=== PATIENT | female | born 1990 | race Two or more races ===

== ENCOUNTER 2023-07-13 07:47 | Inpatient (IN) ==
--- NOTE | 2023-07-13 07:56 | History & Physical Report ---
Date of Service July 13, 2023 Assessment & Plan (1) Encounter for induction of labor: Plan 33 y/o here for induction Epidural when requested AROM when indicated Pitocin augmentation as needed for adequate contraction Monitor tracing, category 1 Admission and Anticipated Discharge Date Admission Date: July 13, 2023 History of Present Illness Primary Care Provider: NO PCP 33 y/o @ 40 weeks confirmed via. THIERRY: 07/11/23. Here for for Induction. No complications during . Has been attending OB appointments regularly. vitamins. GBS negative, Rubella immune, BTG: B+ Contractions: none. Fluid or Blood loss: none Movement: active FHR baseline 130, moderate variability, accelerations present, decelerations absent Lab Results OB Labs: Blood Type B Positive 12/01/22 Antibody Screen NEGATIVE 12/01/22 Hemoglobin 10.0 g/dl (12.0-16.0) L 04/14/23 Hematocrit 30.8 % (37.0-47.0) L 04/14/23 Mean Corpuscular Volume 86.3 fL (80.0-100.0) 12/01/22 Platelet Count 230 K/uL (130-400) 12/01/22 Rubella IgG Antibody Immune (Immune) 12/01/22 Rapid Plasma Reagin Nonreactive (Nonreactive) 12/01/22 Hepatitis B Surface Antigen. NON-REACTIVE (NON-REACTIVE) 12/01/22 Hepatitis C Antibody (EIA) NON-REACTIVE (NON-REACTIVE) 12/01/22 HIV (1&2) Ag and Ab Confirmation NON-REACTIVE (NON-REACTIVE) 12/01/22 Glucose 1 Hour 50 gm Load 109 mg/dl (70-130) 04/14/23 OB Optional Labs: Chlamydia trachomatis RNA Not Detected (NotDetected) 12/01/22 Neisseria gonorrhoeae RNA Not Detected (NotDetected) 12/01/22 Labs Reviewed: Declines genetics--mln Allergies Allergy/AdvReac Type Severity Reaction Status Date / Time No Known Allergies Allergy Verified 07/13/23 08:06 Home Medications Medication Instructions Recorded Confirmed Type no.167-folic acid-dha 1 tab PO DAILY 11/23/22 07/13/23 History [One-A-Day ] ferrous sulfate 325 mg (65 mg 325 mg PO DAILY 07/13/23 07/13/23 History iron) tablet (Iron (ferrous sulfate)) Patient History Medical History (Updated 07/13/23 @ 08:25 by Yemi Gill MD) No known health problems Surgical History (Updated 07/13/23 @ 08:05 by Sophei Fuentes, RN) No history of previous surgery Family History (Updated 11/23/22 @ 09:54 by Ange Roman) Brother Asthma Other Diabetes Dyslipidemia Hypertension Social History (Updated 07/13/23 @ 08:05 by Sophie Fuentes, RN) Smoking Status: Never smoker Do You Dip or Chew Tobacco: No; Hx Alcohol Use: No Hx Substance Use: No Preferred Language: [place] 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 Skin: warm, dry, intact Heart: +S1/S2, regular, no m/r/g Lungs: equal air entry bilaterally, no rales/rhonchi/wheezes Abd: +BS, soft, NT/ND, gravid uterus Cervical: uterus mod. anterior Ext: warm, no clubbing/cyanosis or edema Genitourinary: normal external appearance OB Exam Abdomen: + vertex Manual OB Exam: + cervical dilation (1.5), + cervical effacement 70% and + station high OB Exam Monitor Tracing: + external FHT monitor used, + external uterine monitor used and + category I Supervising Physician Co-Signing Physician Notes Patient seen and evaluated and agree of the above findings and plan. Resident Activity Tracking Resident Involvement: Resident Care Provided Care Provided: OB Delivery
[2023-07-13] MEDS ORDERED: LIDOCAINE 1% LOCAL 20 ML VIAL INFIL PRN (08:20)
[2023-07-13] MEDS ORDERED: OXYTOCIN 30 UNITS/NSS 30 UNITS/500 ML BAG IV PRN (08:20)
[2023-07-13 09:07] LABS: Hematocrit (blood only) 34.8 % (37.0-47.0); Hemoglobin 11.2 g/dl (12.0-16.0); Mean Corpuscular Hemoglobin 28.6 pg (25.0-34.0); Mean Corpuscular Hgb Conc 32.2 g/dL (32.0-36.0); Mean Platelet Volume 10.7 fL (9.4-12.4); Platelet Count 254 K/uL (130-400); RDW Coefficient of Variation 13.8 % (11.5-14.5); RDW Standard Deviation 44.6 fL (36.4-46.3); Red Blood Count 3.91 M/uL (4.20-5.40); White Blood Count 13.02 K/ul (4.8-10.8)
[2023-07-13] MEDS: LACTATED RINGER'S 1,000 ML IV PRN (09:33)
[2023-07-13] MEDS: OXYTOCIN 30 UNITS/NSS 30 UNITS/500 ML BAG IV PRN ×2 (09:33→23:40)
[2023-07-13] MEDS: fentANYL 2 MCG/ML BUPIVacaine 0.125%-NSS 100ML BAG ONE (16:37)
[2023-07-13] MEDS: BUPIVACAINE 0.25% PF 30 ML VIAL ONE (16:42)
[2023-07-13] MEDS: LIDOCAINE 2%/EPINEPHRINE 1:200,000 20 ML PF ONE (16:42)
[2023-07-13] MEDS: SODIUM CHLORIDE 0.9% PF INJ 10 ML VIAL ONE (16:42)
[2023-07-13] MEDS: fentaNYL citrate PF 100 MCG/2 ML VIAL ONE (16:42)
[2023-07-13] MEDS ORDERED: NALBUPHINE HCL 5 MG in SYRINGE 0 ML IV PRN (16:43)
[2023-07-13] MEDS ORDERED: PROMETHAZINE HCL 6.25 MG in SODIUM CHLORIDE 0.9% 50 ML IV PRN (16:43)
[2023-07-13] MEDS ORDERED: ePHEDrine sulfate 50 MG/ML AMP IV PRN (16:43)
[2023-07-13] MEDS ORDERED: BUPIVACAINE 0.25% PF 30 ML VIAL EPI PRN (16:43)
[2023-07-13] MEDS ORDERED: ONDANSETRON INJ 2 MG/ML 2 ML VIAL IV PRN (16:43)
[2023-07-13] MEDS ORDERED: NALOXONE HCL 1 MG in SODIUM CHLORIDE 0.9% 1,000 ML IV PRN (16:43)
[2023-07-13] MEDS ORDERED: LIDOCAINE 2% MPF LOCAL 5 ML VIAL EPI PRN (16:43)
[2023-07-13] MEDS ORDERED: ROPIVACAINE 0.5% PF 5 MG/ML 20 ML VIAL EPI PRN (16:43)
[2023-07-13] MEDS ORDERED: SODIUM CHLORIDE 0.9% PF INJ 10 ML VIAL EPI PRN (16:43)
[2023-07-13] MEDS ORDERED: fentaNYL citrate PF 100 MCG/2 ML VIAL EPI PRN (16:43)
[2023-07-13] MEDS ORDERED: fentANYL 2 MCG/ML BUPIVacaine 0.125%-NSS 100ML BAG EPI PRN (16:43)
[2023-07-13] MEDS ORDERED: NALOXONE HCL 0.4 MG/1 ML VIAL/CARP IV PRN (16:43)
[2023-07-13] MEDS ORDERED: diphenhydrAMINE 50 MG/ML VIAL IV PRN (16:43)
--- NOTE | 2023-07-13 16:43 | Anesthesiology Consultation ---
Date of Service July 13, 2023 Assessment & Plan Chart Review Chart Review: Patient NOT seen in Pre Admission Testing and Acceptable Risk for Labor Epidural Consults Requested none ASA ASA2 Proposed Anesthesia Anesthesia Type: Labor Epidural Risk / Benefits Reviewed With: PT / POA / Parent / Guardian, Accepts Plan and Informed Consent Obtained History Height/Weight Height: 5 ft 10 in Weight: 87.09 kg Allergies Allergy/AdvReac Type Severity Reaction Status Date / Time No Known Allergies Allergy Verified 07/13/23 08:06 Medications Home Medications Medication Instructions Recorded Confirmed Last Taken no.167-folic acid-dha 1 tab PO DAILY 11/23/22 07/13/23 07/12/23 [One-A-Day ] ferrous sulfate 325 mg (65 mg 325 mg PO DAILY 07/13/23 07/13/23 07/12/23 iron) tablet (Iron (ferrous sulfate)) Active Medications Generic Name Dose Route Start Last Admin Trade Name Freq PRN Reason Stop Dose Admin Lactated Ringer's 1,000 mls @ 125 mls/hr 07/13/23 08:20 07/13/23 16:01 Lr IV 07/15/23 08:19 999 mls/hr .Q8H PRN Administration L&D Protocol Protocol Oxytocin 30 units in 500 mls @ 10 mls/hr 07/13/23 08:41 07/13/23 15:29 Pitocin 30 Units/Nss IV 07/15/23 08:40 0.6 units/hr .Q24H PRN 10 mls/hr Labor Induction/Augmentation Titration Protocol 0.6 UNITS/HR Past Medical History Medical History (Updated 07/13/23 @ 08:25 by Yemi Gill MD) No known health problems Exercise / Class Metabolic Activity II 4-5 Yardwork/Stairs/Walk up hill Past Family History Family History (Updated 11/23/22 @ 09:54 by Ange Roman) Brother Asthma Other Diabetes Dyslipidemia Hypertension Past Surgical History Surgical History (Updated 07/13/23 @ 08:05 by Sophie Fuentes RN) No history of previous surgery Past Anesthesia History No Hx of Anesthesia Complications and No Family Hx of Anesthesia Complications History of PONV No Hx of PONV and No Hx of Motion Sickness Social History Smoking Status: Never smoker Do You Dip or Chew Tobacco: No Hx Alcohol Use: No Hx Substance Use: No substance use type: does not use Physical Exam Vital Signs Last Vital Signs Temp 36.6 C 07/13/23 15:00 Pulse 85 07/13/23 16:41 Resp 18 07/13/23 15:00 BP 125/79 07/13/23 16:41 Pulse Ox 86 L 07/13/23 16:41 ENMT Mouth: no dentition abnormality Thyromental Distance: > or= 3.5 Finger Breadths Mallampati Class: II Neck normal visual inspection Respiratory normal respiratory effort Auscultation: lungs clear to auscultation bilaterally Cardiovascular Rate/Rhythm: regular rate and regular rhythm Psychiatric Orientation: alert Testing Laboratory Results 07/13/23 08:52
[2023-07-13] MEDS: BUPIVACAINE 0.25% PF 30 ML VIAL EPI STA (16:58)
[2023-07-13] MEDS: LIDOCAINE 2%/EPINEPHRINE 1:200,000 20 ML PF EPI STA (16:58)
[2023-07-13] MEDS: SODIUM CHLORIDE 0.9% PF INJ 10 ML VIAL EPI STA (16:58)
[2023-07-13] MEDS: fentaNYL citrate PF 100 MCG/2 ML VIAL EPI STA (16:58)
[2023-07-13] MEDS: ePHEDrine sulfate 50 MG/ML AMP ONE (18:59)
[2023-07-13] MEDS: miSOPROStoL 200 MCG TAB ONE (23:51)
[2023-07-14] MEDS ORDERED: HYDROCORTISONE ACETATE 25 MG SUPP PR PRN (00:07)
[2023-07-14] MEDS ORDERED: ACETAMINOPHEN 325 MG TAB PO PRN (00:07)
[2023-07-14] MEDS ORDERED: bisacodyL 10 MG SUPP PR PRN (00:07)
[2023-07-14] MEDS ORDERED: OXYTOCIN 30 UNITS/NSS 30 UNITS/500 ML BAG IV PRN (00:07)
[2023-07-14] MEDS: miSOPROStoL 200 MCG TAB PR ONE (01:19)
[2023-07-14] MEDS: DIPHTHER/TETAN/PERTUS Vaccine (Tdap, Adol/Adult) 0.5mL IM ONE (01:19)
[2023-07-14] MEDS: IBUPROFEN 600 MG TAB PO PRN (01:20)
[2023-07-14] MEDS: BENZOCAINE 20% SPRY 85 APPLN/85 GM CAN EXT PRN (01:20)
--- NOTE | 2023-07-14 06:48 | Obstetrical Progress Note ---
Date of Service July 14, 2023 Assessment & Plan (1) Encounter for care and examination after delivery: Plan 33 y/o s/p vaginal delivery day 1 continue encouraging ambulation continue pain management as needed Hgb reviewed V/S reviewed Encourage breast feeding Admission and Anticipated Discharge Date Admission Date: July 13, 2023 Supervising Physician Co-Signing Physician Notes Patient seen with resident and agree with the above findings and plan. Day 1 status post . Doing well we will continue with routine care Subjective 33 yo post- day 1 s/p Ambulation: ambulating normally Voiding: no voiding problems Passing Gas:: Yes Diet Tolerance:: regular diet Lochia:: Small Feeding Type:: breast feeding and bottle feeding Current Pain Level: Resting comfortably this AM in NAD. Denies PARDO, CP, SOB, N/V/D, LE pain/swelling. Review of Systems Review of Systems: All systems reviewed & are unremarkable except as noted in HPI & below Physical Exam Physical Exam: General: patient resting comfortably, NAD, non-toxic in appearance, AA&O x 4, answers questions appropriately. Skin: warm, dry, intact Heart: +S1/S2, regular, no m/r/g Lungs: equal air entry bilaterally, no rales/rhonchi/wheezes Abd: +BS, soft, NT/ND, uterine fundus firm at umbilicus Ext: warm, no clubbing/cyanosis or edema, Joshua's neg. Results & Data Vital Signs (Past 12 Hours) Vital Signs Temp Pulse Pulse Resp BP BP Pulse Ox 07/14/23 01:55 36.8 C 82 16 120/69 100 07/14/23 01:51 36.8 C 16 07/14/23 01:51 82 120/69 07/14/23 01:36 103 H 126/69 07/14/23 01:22 36.8 C 18 07/14/23 01:22 120 H 123/74 07/14/23 01:07 94 H 122/57 L 07/14/23 00:52 18 07/14/23 00:52 104 H 137/69 07/14/23 00:36 16 07/14/23 00:36 86 125/70 07/14/23 00:21 16 07/14/23 00:21 94 H 126/71 07/14/23 00:06 18 07/14/23 00:06 116 H 134/85 07/13/23 23:51 37.0 C 16 07/13/23 23:51 76 113/74 07/13/23 23:48 78 100 07/13/23 23:43 81 99 07/13/23 23:38 85 100 07/13/23 23:35 85 113/69 07/13/23 23:33 86 100 07/13/23 23:28 90 100 07/13/23 23:23 97 H 99 07/13/23 23:18 91 H 99 07/13/23 23:13 102 H 99 07/13/23 23:08 101 H 99 07/13/23 23:03 100 07/13/23 23:03 107 H 07/13/23 23:03 112 H 82 L 07/13/23 22:58 82 98 07/13/23 22:53 81 98 07/13/23 22:52 101 H 84 L 07/13/23 22:48 81 129/60 89 L 07/13/23 22:47 93 H 80 L 07/13/23 22:43 82 100 07/13/23 22:39 93 H 85 L 07/13/23 22:38 93 H 100 07/13/23 22:33 73 100 07/13/23 22:32 75 123/59 L 07/13/23 22:31 91 H 74 L 07/13/23 22:28 83 100 07/13/23 22:25 85 86 L 07/13/23 22:23 85 100 07/13/23 22:18 85 99 07/13/23 22:17 83 122/68 86 L 07/13/23 22:13 81 96 07/13/23 22:08 106 H 100 07/13/23 22:03 119 H 88 L 07/13/23 22:01 86 82 L 07/13/23 21:58 87 98 07/13/23 21:55 97 H 86 L 07/13/23 21:53 83 99 07/13/23 21:48 82 137/61 100 07/13/23 21:47 87 86 L 07/13/23 21:43 95 H 98 07/13/23 21:41 98 H 87 L 07/13/23 21:38 91 H 100 07/13/23 21:34 100 H 87 L 07/13/23 21:33 100 07/13/23 21:33 92 H 07/13/23 21:33 96 H 129/58 L 07/13/23 21:28 103 H 76 L 07/13/23 21:23 122 H 95 07/13/23 21:21 93 H 87 L 07/13/23 21:18 91 H 100 07/13/23 21:17 90 133/59 L 07/13/23 21:14 100 H 84 L 07/13/23 21:13 84 100 07/13/23 21:08 105 H 100 07/13/23 21:07 90 85 L 07/13/23 21:03 100 07/13/23 21:03 92 H 07/13/23 21:03 88 132/63 07/13/23 21:02 18 07/13/23 21:02 37.4 C 18 07/13/23 20:58 91 H 100 07/13/23 20:53 87 100 07/13/23 20:48 100 07/13/23 20:48 86 07/13/23 20:48 89 123/78 07/13/23 20:43 81 100 07/13/23 20:38 81 100 07/13/23 20:34 92 H 89 L 07/13/23 20:33 89 L 07/13/23 20:33 96 H 07/13/23 20:33 94 H 119/71 07/13/23 20:28 87 100 07/13/23 20:23 91 H 100 07/13/23 20:18 93 H 100 07/13/23 20:17 97 H 134/60 07/13/23 20:13 87 100 07/13/23 20:08 87 100 07/13/23 20:03 80 100 07/13/23 20:02 80 122/63 07/13/23 20:00 16 07/13/23 20:00 16 07/13/23 19:59 85 86 L 07/13/23 19:58 97 H 96 07/13/23 19:53 72 100 07/13/23 19:48 100 07/13/23 19:48 85 07/13/23 19:48 80 122/60 07/13/23 19:43 77 100 07/13/23 19:38 84 100 07/13/23 19:34 68 110/59 L 07/13/23 19:33 69 100 07/13/23 19:32 80 86 L 07/13/23 19:28 72 100 07/13/23 19:23 74 100 07/13/23 19:18 90 93 07/13/23 19:17 76 107/55 L 07/13/23 19:13 72 100 07/13/23 19:08 75 100 07/13/23 19:03 78 99 07/13/23 19:02 90 116/68 07/13/23 19:00 18 07/13/23 19:00 36.8 C 18 07/13/23 18:58 76 100 07/13/23 18:53 83 100 07/13/23 18:48 100 07/13/23 18:48 74 07/13/23 18:48 74 117/65 O2 Del Method 07/14/23 01:55 Room Air 07/14/23 01:51 07/14/23 01:51 07/14/23 01:36 07/14/23 01:22 07/14/23 01:22 07/14/23 01:07 07/14/23 00:52 07/14/23 00:52 07/14/23 00:36 07/14/23 00:36 07/14/23 00:21 07/14/23 00:21 07/14/23 00:06 07/14/23 00:06 07/13/23 23:51 07/13/23 23:51 07/13/23 23:48 07/13/23 23:43 07/13/23 23:38 07/13/23 23:35 07/13/23 23:33 07/13/23 23:28 07/13/23 23:23 07/13/23 23:18 07/13/23 23:13 07/13/23 23:08 07/13/23 23:03 07/13/23 23:03 07/13/23 23:03 07/13/23 22:58 07/13/23 22:53 07/13/23 22:52 07/13/23 22:48 07/13/23 22:47 07/13/23 22:43 07/13/23 22:39 07/13/23 22:38 07/13/23 22:33 07/13/23 22:32 07/13/23 22:31 07/13/23 22:28 07/13/23 22:25 07/13/23 22:23 07/13/23 22:18 07/13/23 22:17 07/13/23 22:13 07/13/23 22:08 07/13/23 22:03 07/13/23 22:01 07/13/23 21:58 07/13/23 21:55 07/13/23 21:53 07/13/23 21:48 07/13/23 21:47 07/13/23 21:43 07/13/23 21:41 07/13/23 21:38 07/13/23 21:34 07/13/23 21:33 07/13/23 21:33 07/13/23 21:33 07/13/23 21:28 07/13/23 21:23 07/13/23 21:21 07/13/23 21:18 07/13/23 21:17 07/13/23 21:14 07/13/23 21:13 07/13/23 21:08 07/13/23 21:07 07/13/23 21:03 07/13/23 21:03 07/13/23 21:03 07/13/23 21:02 07/13/23 21:02 07/13/23 20:58 07/13/23 20:53 07/13/23 20:48 07/13/23 20:48 07/13/23 20:48 07/13/23 20:43 07/13/23 20:38 07/13/23 20:34 07/13/23 20:33 07/13/23 20:33 07/13/23 20:33 07/13/23 20:28 07/13/23 20:23 07/13/23 20:18 07/13/23 20:17 07/13/23 20:13 07/13/23 20:08 07/13/23 20:03 07/13/23 20:02 07/13/23 20:00 07/13/23 20:00 07/13/23 19:59 07/13/23 19:58 07/13/23 19:53 07/13/23 19:48 07/13/23 19:48 07/13/23 19:48 07/13/23 19:43 07/13/23 19:38 07/13/23 19:34 07/13/23 19:33 07/13/23 19:32 07/13/23 19:28 07/13/23 19:23 07/13/23 19:18 07/13/23 19:17 07/13/23 19:13 07/13/23 19:08 07/13/23 19:03 07/13/23 19:02 07/13/23 19:00 07/13/23 19:00 07/13/23 18:58 07/13/23 18:53 07/13/23 18:48 07/13/23 18:48 07/13/23 18:48 Resident Activity Tracking Resident Involvement: Resident Care Provided Care Provided: OB Delivery
--- NOTE | 2023-07-14 07:35 | Delivery Summary ---
Vaginal Delivery Summary Date of Service July 14, 2023 Vaginal Delivery Summary and 2nd Degree LAC Patient progressed to 10 cm dilated 100% effaced pressure intact perineum for approximately 2 hours to achieve delivery. Head of the delivered in direct OA and repositioned to left transverse. Body and shoulders quickly followed. was noted be vigorous soon after delivery and a 1 minute delayed cord clamping was initiated. Cord was then double clamped and cut and remained on maternal abdomen. Cord blood obtained. Attention was turned to delivery of the placenta which delivered intact three-vessel cord with gentle cord traction. On inspection of perineum, vagina and cervix there is noted to be bilateral second-degree sulcal lacerations and bilateral labial lacerations. All lacerations were repaired with 3-0 Vicryl continuous running stitch. Needle sponge and instrument counts are correct at the completion of the case. Estimated blood loss of 400 mL noted. No complications noted. Patient and doing well in the immediate period. [facility] Vaginal Delivery Charge Delivery Type Details: and 2nd Degree LAC
[2023-07-14] MEDS: DOCUSATE SODIUM 100 MG CAP PO SCH (08:20)
[2023-07-14] MEDS: PRENATAL VITAMIN 1 TAB PO SCH (08:20)
[2023-07-14] MEDS: FERROUS SULFATE 325 MG TAB PO SCH (08:20)
[2023-07-14 09:44] LABS: Hemoglobin 8.5 g/dl (12.0-16.0)
--- NOTE | 2023-07-14 12:55 | Anesthesia Procedure Note ---
Date of Service July 14, 2023 Anesthesia Post Epidural Note Vital Signs Vital Signs: Temp Pulse Resp BP Pulse Ox O2 Del Method 98.2 F 79 18 111/73 99 Room Air 07/14/23 07:50 07/14/23 07:50 07/14/23 07:50 07/14/23 07:50 07/14/23 07:50 07/14/23 07:50 Notes Mental Status: alert / awake / arousable and participated in evaluation Nausea / Vomiting: adequately controlled Pain: adequately controlled Airway Patency, RR, SpO2: stable & adequate BP & HR: stable & adequate Hydration State: stable & adequate Neuraxial Anesthesia: was administered and sensory block is resolving Anesthetic Complications: no major complications apparent and Pt Satisfied with anesthetic care Epidural: Removed without complications and With tip intact
--- NOTE | 2023-07-15 05:51 | Obstetrical Progress Note ---
Date of Service July 15, 2023 Assessment & Plan (1) Encounter for care and examination after delivery: Plan 33 y/o s/p vaginal delivery day 2 continue encouraging ambulation continue pain management as needed Hgb reviewed V/S reviewed Encourage breast feeding Discharge home, instructions reviewed Admission and Anticipated Discharge Date Admission Date: July 13, 2023 Supervising Physician Co-Signing Physician Notes Resident Physician Supervision Note: I interviewed and examined the patient. Discussed with Dr. Nolan and agree with findings and plan as documented in the note. Any exceptions or clarifications are listed here: [ ] Documented By: Letty Wells MD, FACOG Subjective 33 yo post- day 2 s/p Ambulation: ambulating normally Voiding: no voiding problems Passing Gas:: Yes Diet Tolerance:: regular diet Lochia:: Small Feeding Type:: breast feeding and bottle feeding Current Pain Level: Minimal, controlled with pain meds Resting comfortably this AM in NAD. Denies PARDO, CP, SOB, N/V/D, LE pain/swelling. Review of Systems Review of Systems: All systems reviewed & are unremarkable except as noted in HPI & below Physical Exam Physical Exam: General: patient resting comfortably, NAD, non-toxic in appearance, AA&O x 4, answers questions appropriately. Skin: warm, dry, intact Heart: +S1/S2, regular, no m/r/g Lungs: equal air entry bilaterally, no rales/rhonchi/wheezes Abd: +BS, soft, NT/ND, uterine fundus firm at umbilicus Ext: warm, no clubbing/cyanosis or edema, Joshua's neg. Results & Data Vital Signs (Past 12 Hours) Vital Signs Temp Pulse Resp BP Pulse Ox O2 Del Method 07/14/23 23:44 36.9 C 107 H 16 100/65 98 Room Air 07/14/23 20:18 37.0 C 115 H 16 111/74 100 Room Air Resident Activity Tracking Resident Involvement: Resident Care Provided Care Provided: OB Delivery
[2023-07-15] MEDS ORDERED: bisacodyL 5 MG TABEC PO SCH (20:00)
== END 2023-07-15 17:30 | disposition home or self-care (01) | DRG 807 ==
LOC: 4S1 07:47 → 4E2 07-14 02:17

== ENCOUNTER 2023-07-16 08:57 | Inpatient (IN) ==
--- NOTE | 2023-07-16 09:07 | Emergency Department Note ---
History of Present Illness General Chief complaint: Fever Stated complaint: HIGH FEVER, 3 DAYS POST Time Seen by Provider: 07/16/23 09:05 History of Present Illness Maximum Pain Intensity: 5 This is a 33-year-old female that is 3 days from vaginal delivery on 07/13/2023 here at this hospital that presents to the emergency department via private vehicle with complaints of "high fever". Patient notes that she spiked a fever around 0200 hrs. lasting until 0630. Tylenol was then taken around 0630. She called her doctor and was referred here for further evaluation and management. She notes associated chills. She also notes a clogged duct in the left breast. Current discomfort 10/06. Patient does note some ongoing discomfort in the genital area which is not new today and has been present since vaginal delivery and suture repair of the area. No history of similar. No nausea vomiting or diarrhea. Per review of the EMR patient did undergo vaginal delivery here as document by Dr. Tillman on 07/13/2023. Home Medications Medication Instructions Recorded Confirmed Type ferrous sulfate 325 mg (65 mg 325 mg PO DAILY 07/13/23 07/16/23 History iron) tablet (Iron (ferrous sulfate)) vitamin no.167-folic acid 1 tab PO DAILY 07/16/23 07/16/23 History 400 mcg-dha 25 mg chewable tablet (One-A-Day ) Allergies Allergy/AdvReac Type Severity Reaction Status Date / Time No Known Allergies Allergy Verified 07/16/23 11:11 Past Med/Surg History Medical History (Updated 07/16/23 @ 16:56 by Pete Dai PA-C) No known health problems Surgical History (Updated 07/13/23 @ 08:05 by Sophie Fuentes RN) No history of previous surgery Family History (Updated 11/23/22 @ 09:54 by Ange Roman) Brother Asthma Other Diabetes Dyslipidemia Hypertension Social History (Updated 07/13/23 @ 08:05 by Sophie Fuentes, MARY) Smoking Status: Never smoker Do You Dip or Chew Tobacco: No; Hx Alcohol Use: No Hx Substance Use: No Preferred Language: Malian Diving Fisher Required: No Beliefs That Will Affect Care: None marital status: marital status details: Ricki (28) [phone] Current Living Situation: Spouse Current Living Situation Comment: lives with spouse, no pets, current occupational status: unemployed Feels Safe at Home: Yes Review of Systems A total of 10 systems reviewed and were otherwise negative Physical Exam Vital Signs Vital Signs - 24 hr 07/16/23 09:00 07/16/23 10:15 07/16/23 11:20 Temperature 36.9 C Temperature Source Oral Pulse Rate 149 H 131 H 111 H Pulse Rate from SpO2 Sensor 109 H Respiratory Rate 18 22 Respiratory Effort / Characteristics Non-Labored Spontaneous Respiratory Depth Normal Respiratory Pattern Regular Blood Pressure 119/77 110/73 Blood Pressure Mean 91 85 Blood Pressure Position Sitting Pulse Oximetry 100 98 Oxygen Delivery Method Room Air Sepsis Recent Fever Within 48 Hours Yes Sepsis New/Unexplained Change in Mental Status N/A Sepsis Action Taken by Nursing No Action Required 07/16/23 11:30 07/16/23 11:45 07/16/23 12:00 Temperature Temperature Source Pulse Rate 104 H 106 H 115 H Pulse Rate from SpO2 Sensor 105 H 106 H 118 H Respiratory Rate 20 23 24 Respiratory Effort / Characteristics Respiratory Depth Respiratory Pattern Blood Pressure 111/69 116/78 127/75 Blood Pressure Mean 83 90 92 Blood Pressure Position Pulse Oximetry 98 100 95 Oxygen Delivery Method Sepsis Recent Fever Within 48 Hours Sepsis New/Unexplained Change in Mental Status Sepsis Action Taken by Nursing 07/16/23 12:15 07/16/23 12:30 07/16/23 12:45 Temperature Temperature Source Pulse Rate 103 H 103 H 104 H Pulse Rate from SpO2 Sensor 106 H 104 H 103 H Respiratory Rate 21 19 18 Respiratory Effort / Characteristics Respiratory Depth Respiratory Pattern Blood Pressure 113/74 116/75 119/75 Blood Pressure Mean 87 88 89 Blood Pressure Position Pulse Oximetry 100 100 100 Oxygen Delivery Method Sepsis Recent Fever Within 48 Hours Sepsis New/Unexplained Change in Mental Status Sepsis Action Taken by Nursing VITAL SIGNS - Vital signs and nursing notes were reviewed. Tachycardic, otherwise stable. GENERAL - 33-year-old female appearing her stated age who is in no acute distress. Communicates well with provider and answers questions appropriately. SKIN - Without rashes. HEAD - NC/AT. EYES - Sclera anicteric. EARS - No deformities of external structures noted on gross examination bilaterally. NOSE - Midline and without cyanosis. No epistaxis or purulent drainage noted. MOUTH/OROPHARYNX - Without perioral cyanosis. NECK - No nuchal rigidity. LUNGS - CTA CARDIAC - RRR ABDOMEN - Abdominal contour normal without pulsations or visible masses. No guarding or rigidity. BS normoactive all four quadrants. No tenderness, palpable masses, hepatosplenomegaly, or ascites noted. EXTREMITIES - No clubbing or peripheral cyanosis. +5/5 strength noted in UE/LE bilaterally. NEUROLOGIC - Cranial nerves II through XII grossly intact. PSYCH - A&O, and cooperates fully with examiner. Pt is very pleasant and interacts well with examiner. Course Administered Medications Lactated Ringer's (Lr) 1,000 mls @ 125 mls/hr IV .Q8H SARA Stop: 08/15/23 12:59 Last Admin: 07/16/23 15:47 Dose: 125 mls/hr Documented By: KIMBERLY Discontinued Medications Sodium Chloride (Nss) 1,000 mls @ 999 mls/hr IV .Q1H1M SARA Stop: 07/16/23 10:30 Last Infusion: 07/16/23 12:28 Dose: Infused Documented By: Admin: 07/16/23 11:12 Dose: 999 mls/hr Documented By: KUSUM Clindamycin Phosphate (Cleocin/D5w) 900 mg in 50 mls @ 100 mls/hr IV NOW ONE Stop: 07/16/23 11:06 Last Infusion: 07/16/23 12:01 Dose: Infused Documented By: Admin: 07/16/23 11:29 Dose: 100 mls/hr Documented By: KUSUM Gentamicin Sulfate 400 mg/ (Dextrose) 110 mls @ 100 mls/hr IV NOW STA Stop: 07/16/23 11:48 Last Infusion: 07/16/23 12:32 Dose: Infused Documented By: Admin: 07/16/23 11:29 Dose: 100 mls/hr Documented By: KUSUM Medical Decision Making Laboratory Data 07/16/23 09:37 07/16/23 09:37 Lab Results 07/16/23 Range/Units 09:37 WBC 22.91 H (4.8-10.8) K/ul RBC 3.01 L (4.20-5.40) M/uL Hgb 8.7 L (12.0-16.0) g/dl Hct 27.0 L (37.0-47.0) % MCV 89.7 (80.0-100.0) fL MCH 28.9 (25.0-34.0) pg MCHC 32.2 (32.0-36.0) g/dL RDW Std Deviation 46.5 H (36.4-46.3) fL RDW Coeff of Panchito 14.3 (11.5-14.5) % Plt Count 290 (130-400) K/uL MPV 10.4 (9.4-12.4) fL Immature Gran % (Auto) 1.1 % Neut % (Auto) 82.5 % Lymph % (Auto) 8.3 % Yates % (Auto) 7.2 % Eos % (Auto) 0.6 % Baso % (Auto) 0.3 % Neut # (Auto) 18.89 H (1.40-6.50) K/uL Lymph # (Auto) 1.90 (1.20-3.40) K/uL Yates # (Auto) 1.66 H (0.11-0.59) K/uL Eos # (Auto) 0.13 (0.00-0.50) K/uL Baso # (Auto) 0.08 (0.00-0.20) K/uL Immature Gran # (Auto) 0.25 H (0.01-0.20) K/uL Sodium 137 (136-145) mmol/L Potassium 3.2 L (3.5-5.1) mmol/L Chloride 105 (98-107) mmol/L Carbon Dioxide 24 (21-32) mmol/L Anion Gap 8 (3-11) BUN 9 (6-23) mg/dl Creatinine 0.72 (0.6-1.2) mg/dl Est Cr Clr Drug Dosing 121.3 ml/min Est GFR ( Amer) 128.4 ml/min Est GFR (Non-Af Amer) 110.8 ml/min BUN/Creatinine Ratio 12.5 (10-20) Glucose 108 H (70-99(Fasting)) mg/dl Lactate 1.1 (0.4-2.0) mmol/L Calcium 8.6 (8.6-10.3) mg/dl Magnesium 1.6 L (1.7-2.4) mg/dl Total Bilirubin 0.3 (0.2-1.0) mg/dl Direct Bilirubin 0.0 (0-0.2) mg/dl AST 20 (13-39) U/L ALT 15 (7-52) U/L Alkaline Phosphatase 106 H (34-104) U/L Troponin I High Sens 14.2 H (0-14) pg/ml Total Protein 6.8 (6.0-8.3) gm/dl Albumin 3.5 (3.4-5.0) gm/dl Procalcitonin 0.08 (0-0.5) ng/ml Imaging Data Radiologist's Impression: Chest X-Ray 07/16/23 09:06 XR chest 1V not portable HISTORY: 33 years-old Female Sepsis acute sepsis COMPARISON: None TECHNIQUE: PA view of the chest FINDINGS: Cardiomediastinal and hilar silhouettes are within normal limits. There is no pneumothorax, pleural effusion, airspace consolidation or pulmonary edema. There is mild upper thoracic levoscoliosis. IMPRESSION: No acute process. ACT 112: Negative or not required by law. The above report was generated using voice recognition software. It may contain grammatical, syntax or spelling errors. Electronically signed by: Baron Ballesteros M.D. 07/16/2023 9:33 AM [facility] Narrative Patient was seen and evaluated as above in room D03. Review was performed of triage nursing notes and vital signs. After obtaining a thorough history and physical examination the above work up was performed. Patient presents to us today for evaluation of fever and is 3 days . Patient was here in the hospital and delivered vaginally. She was doing well in the outpatient setting but notes around 2:30 AM today developed a mild fever 99.9 F and then at 0630 this morning was freezing/cold and notes temperature was 101.8 F. Her only complaint of pain at this time is in the vaginal area where she notes that she had sutures placed following vaginal delivery and is not new pain today. The patient on exam is tired appearing and mildly pale. She is tachycardic on arrival at 149 bpm. EKG was performed on arrival and reveals sinus tachycardia at a rate of 144 bpm. QTc 383. QRS 70. No chest pain. No shortness of breath. Chest x-ray was obtained and is negative. Options of care were discussed with the patient. Noting the patient's symptoms and tachycardia at this time there is concern for infection. IV access was established. Labs were drawn. There is leukocytosis 22.91. There is anemia noted with hemoglobin of 8.7 but the anemia is mildly improved compared to previous. Mild hypokalemia 3.2. Magnesium mildly low at 1.6. Troponin mildly elevated at 14.2 likely in the setting of the patient's tachycardia which is suspected to be of infectious etiology. Procalcitonin 0.08. Lactate within normal range. No urinalysis sample provided thus far but is ordered. BioFire viral panel test negative. Blood cultures are pending. At this time with the patient's tachycardia, 3 days state, uptrending leukocytosis with subjective fever at home I did discuss this with the on-call CORRECTIONAL COUNSELOR physician, Dr. Ott at 10:31 AM. At this time we reviewed plan of care and will treat empirically for possible endometritis noting fever pending further testing results/workup. Recommendation from CORRECTIONAL COUNSELOR was empiric clindamycin plus gentamicin. This was ordered. I reviewed benefit versus risk of these medications with the patient and through shared decision making we will proceed. Dr. Ott will admit the patient to the hospital for further evaluation and management. I do believe admission is warranted noting the patient's significant tachycardia on arrival in the setting with suspected infectious etiology. It is important to note that other sources of infection are still possible at this time, and her course will need to be closely clinically trended. As the urine sample is still pending, will note that gentamicin that was ordered for empiric coverage of endometritis would also cover urinary sources. I did present the recommendations from CORRECTIONAL COUNSELOR to the patient and she is amenable to proceeding with plan of care. Please refer to further documentation regarding her stay. GCS: 15 In the evaluation and treatment of this patient the following differential diagnoses were entertained: Endometritis, UTI, pyelonephritis, sepsis, bacteremia, pneumonia, perineal infection, among others. Impression & Plan fever, Tachycardia, Anemia Discharge Plan Visit Data Chief Complaint: Fever Stated Complaint: HIGH FEVER, 3 DAYS POST ED Provider: Alma Bolaños ED Midlevel Provider: Pete Dai Discharge Problem: fever, Tachycardia, Anemia Patient Disposition: Admitted As Inpatient Condition: Good Discharge Instructions Interventions: ED Discharge Assessment Last Done: 07/16/23 13:52
--- NOTE | 2023-07-16 09:35 | XRay Report ---
XR chest 1V not portable HISTORY: 33 years-old Female Sepsis acute sepsis COMPARISON: None TECHNIQUE: PA view of the chest FINDINGS: Cardiomediastinal and hilar silhouettes are within normal limits. There is no pneumothorax, pleural e ffusion, airspace consolidation or pulmonary edema. There is mild upper thoracic levoscoliosis. IMPRESSION: No acute process. ACT 112: Negative or not required by law. The above report was generated using voice recognition software. It may contain grammatical, syntax o r spelling errors. Electronically signed by: Baron Ballesteros M.D. 07/16/2023 9:33 AM
[2023-07-16 10:00] LABS: Basophils # (auto) 0.08 K/uL (0.00-0.20); Basophils % (auto) 0.3 %; Eosinophils # (auto) 0.13 K/uL (0.00-0.50); Eosinophils % (auto) 0.6 %; Hemoglobin 8.7 g/dl (12.0-16.0); Immature Granulocytes # (auto) 0.25 K/uL (0.01-0.20); Immature Granulocytes % (auto) 1.1 %; Lymphocytes % (auto) 8.3 %; Mean Corpuscular Hemoglobin 28.9 pg (25.0-34.0); Mean Corpuscular Hgb Conc 32.2 g/dL (32.0-36.0); Mean Corpuscular Volume 89.7 fL (80.0-100.0); Mean Platelet Volume 10.4 fL (9.4-12.4); Monocytes # (auto) 1.66 K/uL (0.11-0.59); Monocytes % (auto) 7.2 %; Neutrophils # (auto) 18.89 K/uL (1.40-6.50); Neutrophils % (auto) 82.5 %; Platelet Count 290 K/uL (130-400); RDW Coefficient of Variation 14.3 % (11.5-14.5); RDW Standard Deviation 46.5 fL (36.4-46.3); Red Blood Count 3.01 M/uL (4.20-5.40); White Blood Count 22.91 K/ul (4.8-10.8)
[2023-07-16 10:10] LABS: Albumin Level 3.5 gm/dl (3.4-5.0); BUN Creatinine Ratio 12.5 (10-20); Bilirubin,Total 0.3 mg/dl (0.2-1.0); Calcium 8.6 mg/dl (8.6-10.3); Creatinine Clr Calc Pharmacy 121.3 ml/min; Est GFR (African American) 128.4 ml/min; Est GFR (Non-African American) 110.8 ml/min; Magnesium 1.6 mg/dl (1.7-2.4); Potassium 3.2 mmol/L (3.5-5.1); Total Protein 6.8 gm/dl (6.0-8.3)
[2023-07-16 10:16] LABS: Troponin I High Sensitivity 14.2 pg/ml (0-14)
[2023-07-16] MEDS ORDERED: GENTAMICIN SULFATE 360 MG in DEXTROSE 5% 100 ML IV STA (10:37)
[2023-07-16] MEDS ORDERED: GENTAMICIN CONSULT ACTIVE PRN ×2 (10:37→12:51)
[2023-07-16] MEDS: SODIUM CHLORIDE 0.9% 1,000 ML IV SCH (11:12)
[2023-07-16] MEDS: CLINDAMYCIN/D5W 900 MG/50 ML BAG IV ONE (11:29)
[2023-07-16] MEDS: GENTAMICIN SULFATE 400 MG in DEXTROSE 5% 100 ML IV STA (11:29)
[2023-07-16 12:23] LABS: Adenovirus PCR Not Detected (NotDetected); Bordetella parapertussis PCR Not Detected (NotDetected); Bordetella pertussis PCR Not Detected (NotDetected); Chlamydia pneumoniae PCR Not Detected (NotDetected); Coronavirus 229E PCR Not Detected (NotDetected); Coronavirus CoV-2 (COVID19)PCR Not Detected (NotDetected); Coronavirus HKU1 PCR Not Detected (NotDetected); Coronavirus NL63 PCR Not Detected (NotDetected); Coronavirus OC43PCR Not Detected (NotDetected); Human Metapneumovirus PCR Not Detected (NotDetected); Influenza A PCR Not Detected (NotDetected); Influenza B PCR Not Detected (NotDetected); Mycoplasma pneumoniae PCR Not Detected (NotDetected); Parainfluenza Virus 1 PCR Not Detected (NotDetected); Parainfluenza Virus 2 PCR Not Detected (NotDetected); Parainfluenza Virus 3 PCR Not Detected (NotDetected); Parainfluenza Virus 4 PCR Not Detected (NotDetected); Respiratory Syncytial VirusPCR Not Detected (NotDetected); Rhinovirus/Enterovirus PCR Not Detected (NotDetected)
[2023-07-16] MEDS ORDERED: ONDANSETRON INJ 2 MG/ML 2 ML VIAL IV PRN (12:46)
[2023-07-16] MEDS ORDERED: ACETAMINOPHEN 325 MG TAB PO PRN (12:46)
[2023-07-16] MEDS ORDERED: ALUMINUM/MAGNESIUM/SIMETH (MAALOX MAX) 30 ML UDC PO PRN (12:46)
[2023-07-16] MEDS ORDERED: MAGNESIUM HYDROXIDE SUSP 30 ML UDC PO PRN (12:46)
[2023-07-16] MEDS ORDERED: GENTAMICIN SULFATE 100 MG in DEXTROSE 5% 100 ML IV STA (12:51)
[2023-07-16] MEDS ORDERED: IBUPROFEN 600 MG TAB PO PRN (12:53)
--- NOTE | 2023-07-16 14:04 | History & Physical Report ---
Date of Service July 16, 2023 Assessment & Plan (1) Endometritis following delivery: Plan: Will admit her for IV clindamycin and gentamicin for suspected endometritis. However I am not completely convinced that this is not a urinary source for her fever although she has no flank pain. In light of her urinary retention and requiring straight cath . When she is admitted to the floor, we will get a straight cath specimen urine to rule out a urinary source. on admission to the floor she was straight cathed for 1200ml of urine. will do bladder scans after voids going forward to be sure she isn't having urinary retention History of Present Illness Primary Care Provider: NO PCP Patient is a 33-year-old 1 para 1-0-0-1 female status post spontaneous vaginal delivery on 07/14/2023 shortly after midnight. She presents now with a history of chills and a temperature elevation to 101.8 as of 630 this morning. She feels fatigued but no body aches. Because of her temperature elevation she was encouraged to come to the emergency room for further evaluation. She has no headaches, pain with urination ,pelvic pain, nausea, vomiting or diarrhea. She does note that when the urine touches her perineal laceration repair it does burn. She also states that the pain in her repair seems to be worse today than it was at discharge. She has only done 1 sitz bath and that was during her admission. She has been using the Dermoplast on a regular basis however. She has had minimal lochia which does not have a foul smell. Of note, she did require a straight catheterization for urinary retention during her admission again during the period. She was straight cathed for 500 ml initially and then was cathed a second time for 1800 mL of urine. During her evaluation in the emergency room she was noted to be tachycardic but blood pressure was normal and highest temperature elevation was 99.0 F. She did have some pain in her left breast that she thought was a clogged duct but she has not noted any redness or tenderness in the breast except for generalized engorgement. She has no other localizing signs like flank pain, suprapubic pain cough ,shortness of breath or chest pain.. Her WBC count is 22,000 and her hemoglobin is 8.7 today. Hemoglobin was 8.5 2 days ago. Because of her temperature elevation prior to evaluation emergency room and her elevated white count, we will admit her for IV antibiotics for suspected endometritis. Allergies Allergy/AdvReac Type Severity Reaction Status Date / Time No Known Allergies Allergy Verified 07/16/23 11:11 Home Medications Medication Instructions Recorded Confirmed Type ferrous sulfate 325 mg (65 mg 325 mg PO DAILY 07/13/23 07/16/23 History iron) tablet (Iron (ferrous sulfate)) vitamin no.167-folic acid 1 tab PO DAILY 07/16/23 07/16/23 History 400 mcg-dha 25 mg chewable tablet (One-A-Day ) Patient History Medical History (Updated 07/16/23 @ 14:13 by Cynthia Ott MD, FACOG) No known health problems Surgical History (Updated 07/13/23 @ 08:05 by Sophie Fuentes, MARY) No history of previous surgery Family History (Updated 11/23/22 @ 09:54 by Ange Roman) Brother Asthma Other Diabetes Dyslipidemia Hypertension Social History (Updated 07/13/23 @ 08:05 by Sophie Fuentes, RN) Smoking Status: Never smoker Do You Dip or Chew Tobacco: No; Hx Alcohol Use: No Hx Substance Use: No 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 Beliefs That Will Affect Care: None marital status: marital status details: Ricki (28) [phone] Current Living Situation: Spouse Current Living Situation Comment: lives with spouse, no pets, current occupational status: unemployed Feels Safe at Home: Yes Review of Systems All systems reviewed & are unremarkable except as noted in HPI & below Physical Exam Constitutional: WD/WN, vitals as above Chest (Breasts): Additional Comments: engorged but no redness or tenderness nipples intact without erythema Musculoskeletal: (-) CVAT bilaterally Psychiatric: A+Ox3, euthymic affect Genitourinary: perineum mildly edematous - no erythema, repair intact Results & Data Vital Signs (Past 12 Hours) Vital Signs Temp Pulse Resp BP Pulse Ox O2 Del Method 07/16/23 13:30 109 H 21 123/90 100 07/16/23 13:15 132 H 22 91/73 L 98 07/16/23 13:00 108 H 19 118/78 100 07/16/23 12:45 104 H 18 119/75 100 07/16/23 12:30 103 H 19 116/75 100 07/16/23 12:15 103 H 21 113/74 100 07/16/23 12:00 115 H 24 127/75 95 07/16/23 11:45 106 H 23 116/78 100 07/16/23 11:30 104 H 20 111/69 98 07/16/23 11:20 111 H 22 110/73 98 07/16/23 10:15 131 H 07/16/23 09:00 98.4 F 149 H 18 119/77 100 Room Air Code Status & VTE Plan VTE Prophylaxis Plan VTE Prophylaxis will be ordered: No Coding Level of Care Code 41408 INT INP/OBS CARE 2/55MIN Diagnoses Endometritis following delivery O86.12
[2023-07-16] MEDS: LACTATED RINGER'S 1,000 ML IV SCH (15:47)
[2023-07-16 15:52] LABS: Appearance Urine Cloudy (Clear); Bacteria Urine Automated 4+ (Negative); Bilirubin Urine Negative (Negative); Blood Urine 1+ (Negative); Color Urine Yellow; Epithelial Cell Urine Auto 0-5 /lpf (0-5); Glucose Urine UA Negative (Negative); Ketones Urine Trace (Negative); Leukocyte Esterase Urine 1+ (Negative); Nitrite Urine Positive (Negative); Protein Urine Trace (Negative); RBC Urine Automated 0-4 /hpf (0-4); Specific Gravity Urine 1.015 (1.000-1.030); Urobilinogen Urine Negative (Negative); WBC Urine Automated >30 /hpf (0-5)
--- NOTE | 2023-07-16 15:57 | Pharmacy Report ---
Pharmacy PK ABX Note - Date of Service July 16, 2023 - Assessment and Plan Assessment 33 year old F receiving clindamycin and gentamicin for suspected endometritis . R/o urinary source as wellas UA does suggest possible UTI (nitrite +, leuk esterase 1+, WBC >30, epi 0-5, 4+ bacteria. WBC 22. Blood cultures pending. Plan Gentamicn Will dose 5 mg/kg actual body weight every 24H, trough to be obtained if continued >72 hours. Pharmacy will continue to follow and will adjust dose/frequency as necessary. Thank you.
[2023-07-16] MEDS ORDERED: AMPICILLIN SOD 1 GM VIAL IV SCH (16:45)
[2023-07-16] MEDS: AMPICILLIN 2,000 MG in SODIUM CHLOR 0.9% MINI-B 100 ML IV SCH (17:49)
[2023-07-16] MEDS ORDERED: bisacodyL 5 MG TABEC PO PRN (18:01)
[2023-07-16] MEDS: CLINDAMYCIN/D5W 900 MG/50 ML BAG IV SCH (20:00)
[2023-07-16] MEDS: DOCUSATE SODIUM 100 MG CAP PO SCH (20:07)
--- NOTE | 2023-07-17 07:08 | Gynecologic Progress Note ---
Date of Service July 17, 2023 Assessment & Plan (1) fever: Plan: urine analysis showed 4+ bacteria and leucocytes as well as (+) nitrite so most likely UTI causing fever and not endometritis will continue current ABX regimen until at least preliminary urine culture results are available. Admission and Anticipated Discharge Date Admission Date: July 16, 2023 Subjective feeling much better this morning. no flank pain or pelvic pain.no URI or GI complaints. voiding well now. post void residuals between 300-400cc after 500- 600 voids. lochia is small. no body aches or chills. she did have temp elevation to 102.4 F yesterday at 1600. afebrile since then. Review of Systems Review of Systems: All systems reviewed & are unremarkable except as noted in HPI & below Physical Exam Constitutional: WD/WN, vitals as above Psychiatric: A+Ox3, euthymic affect Genitourinary: OB Exam Abdomen: + fundal height Fundus: + firm and + relation to umbilicus (2-3 below); not tender Results & Data Vital Signs (Past 12 Hours) Vital Signs Temp Pulse Resp BP Pulse Ox O2 Del Method 07/17/23 00:45 98.6 F 112 H 18 110/69 97 Room Air 07/16/23 19:53 100.6 F H 119 H 18 116/68 100 Room Air PG Care Time/CCT Total # of Minutes Spent Total Time Spent with Patient: Total time spent is greater than 50% in coordination of care (as documented) at patient's floor/unit and/or counseling patient: Coding Level of Care Code 15557 SUB INP/OBS CARE /25MIN Diagnoses fever O86.4
[2023-07-17 07:25] LABS: Basophils # (auto) 0.05 K/uL (0.00-0.20); Basophils % (auto) 0.3 %; Eosinophils # (auto) 0.25 K/uL (0.00-0.50); Eosinophils % (auto) 1.3 %; Hematocrit (blood only) 23.6 % (37.0-47.0); Hemoglobin 7.7 g/dl (12.0-16.0); Immature Granulocytes # (auto) 0.23 K/uL (0.01-0.20); Immature Granulocytes % (auto) 1.2 %; Lymphocytes # (auto) 2.85 K/uL (1.20-3.40); Lymphocytes % (auto) 15.2 %; Mean Corpuscular Hemoglobin 29.5 pg (25.0-34.0); Mean Corpuscular Hgb Conc 32.6 g/dL (32.0-36.0); Mean Corpuscular Volume 90.4 fL (80.0-100.0); Mean Platelet Volume 10.4 fL (9.4-12.4); Monocytes # (auto) 2.29 K/uL (0.11-0.59); Monocytes % (auto) 12.2 %; Neutrophils # (auto) 13.04 K/uL (1.40-6.50); Neutrophils % (auto) 69.8 %; Platelet Count 263 K/uL (130-400); RDW Coefficient of Variation 14.3 % (11.5-14.5); RDW Standard Deviation 46.9 fL (36.4-46.3); Red Blood Count 2.61 M/uL (4.20-5.40); White Blood Count 18.71 K/ul (4.8-10.8)
[2023-07-17 08:04] LABS: Polychromasia 1+
[2023-07-17] MEDS: PRENATAL VITAMIN 1 TAB PO SCH (09:51)
[2023-07-17] MEDS: FERROUS SULFATE 325 MG TAB PO SCH (09:51)
[2023-07-17] MEDS: GENTAMICIN SULFATE 400 MG in DEXTROSE 5% 100 ML IV SCH (13:52)
--- NOTE | 2023-07-17 21:45 | Electrocardiogram Report ---
Test Reason : Blood Pressure : / mmHG Vent. Rate : 144 BPM Atrial Rate : 144 BPM P-R Int : 116 ms QRS Dur : 070 ms QT Int : 248 ms P-R-T Axes : 086 074 -77 degrees QTc Int : 383 ms Sinus tachycardia Abnormal ECG No previous ECGs available Confirmed by Gucci Jose ([id number]) on 07/17/2023 9:45:10 PM Referred By: REFERRED SELF Confirmed By:Gucci Jose
[2023-07-18 06:25] LABS: Basophils # (auto) 0.04 K/uL (0.00-0.20); Basophils % (auto) 0.3 %; Eosinophils # (auto) 0.43 K/uL (0.00-0.50); Eosinophils % (auto) 3.1 %; Hemoglobin 7.4 g/dl (12.0-16.0); Immature Granulocytes # (auto) 0.17 K/uL (0.01-0.20); Immature Granulocytes % (auto) 1.2 %; Lymphocytes # (auto) 2.86 K/uL (1.20-3.40); Lymphocytes % (auto) 20.8 %; Mean Corpuscular Hemoglobin 29.5 pg (25.0-34.0); Mean Corpuscular Hgb Conc 33.6 g/dL (32.0-36.0); Mean Corpuscular Volume 87.6 fL (80.0-100.0); Mean Platelet Volume 9.9 fL (9.4-12.4); Monocytes # (auto) 1.34 K/uL (0.11-0.59); Monocytes % (auto) 9.7 %; Neutrophils # (auto) 8.91 K/uL (1.40-6.50); Neutrophils % (auto) 64.9 %; Platelet Count 298 K/uL (130-400); RDW Standard Deviation 45.1 fL (36.4-46.3); Red Blood Count 2.51 M/uL (4.20-5.40); White Blood Count 13.75 K/ul (4.8-10.8)
[2023-07-18 06:44] LABS: Creatinine Clr Calc Pharmacy 150.6 ml/min; Est GFR (African American) 141.4 ml/min
[2023-07-18 06:46] LABS: Polychromasia 1+
--- NOTE | 2023-07-18 06:59 | Obstetrical Progress Note ---
Date of Service July 18, 2023 Assessment & Plan (1) fever: Plan: Doing well, continues to be afebrile DC today on Augmentin x5 days f/u in office within one week Admission and Anticipated Discharge Date Admission Date: July 16, 2023 Supervising Physician Co-Signing Physician Notes Resident Physician Supervision Note: I interviewed and examined the patient. Discussed with Dr. Waters and agree with findings and plan as documented in the note. Any exceptions or clarifications are listed here: [None] Documented By: Cynthia Ott MD, FACOG Subjective 33 yo post day 5 s/p readmitted for fever after delivery. Currently afebrile, feeling better. UCx pending. On clindamycin/ampicilliin Ambulation: ambulating normally Voiding: no voiding problems Passing Gas:: Yes Diet Tolerance:: regular diet Lochia:: Small Feeding Type:: breast feeding Current Pain Level: Resting comfortably this AM in NAD. Denies PARDO, CP, SOB, N/V/D, LE pain/swelling. Review of Systems Review of Systems: reviewed, per HPI Physical Exam Physical Exam: General: patient resting comfortably, NAD, non-toxic in appearance, answers questions appropriately. Skin: warm, dry, intact HEENT: NC/AT, anicteric sclera, conjunctiva without injection, moist mucus membranes. Heart: +S1/S2, regular, no m/r/g Lungs: equal air entry bilaterally, no rales/rhonchi/wheezes Abd: +BS, soft, NT/ND, uterine fundus firm at umbilicus Ext: warm, no clubbing/cyanosis or edema, Joshua's neg. Neuro: nonfocal, speech intact, no facial droop, moving all extremities on command. Results & Data Vital Signs (Past 12 Hours) Vital Signs Temp Pulse Resp BP BP Pulse Ox O2 Del Method 07/18/23 03:40 36.8 C 93 H 18 106/72 97 Room Air 07/18/23 00:15 36.8 C 92 H 18 116/68 97 Room Air 07/17/23 19:30 36.7 C 98 H 16 117/75 98 Room Air Resident Activity Tracking Resident Involvement: Resident Care Provided Care Provided: Adult Hospital Medicine
--- NOTE | 2023-07-19 15:26 | Discharge Summary ---
Date of Service July 19, 2023 Admission HPI Per Admitting Provider Patient is a 33-year-old 1 para 1-0-0-1 female status post spontaneous vaginal delivery on 07/14/2023 shortly after midnight. She presents now with a history of chills and a temperature elevation to 101.8 as of 630 this morning. She feels fatigued but no body aches. Because of her temperature elevation she was encouraged to come to the emergency room for further evaluation. She has no headaches, pain with urination ,pelvic pain, nausea, vomiting or diarrhea. She does note that when the urine touches her perineal laceration repair it does burn. She also states that the pain in her repair seems to be worse today than it was at discharge. She has only done 1 sitz bath and that was during her admission. She has been using the Dermoplast on a regular basis however. She has had minimal lochia which does not have a foul smell. Of note, she did require a straight catheterization for urinary retention during her admission again during the period. She was straight cathed for 500 ml initially and then was cathed a second time for 1800 mL of urine. During her evaluation in the emergency room she was noted to be tachycardic but blood pressure was normal and highest temperature elevation was 99.0 F. She did have some pain in her left breast that she thought was a clogged duct but she has not noted any redness or tenderness in the breast except for generalized engor gement. She has no other localizing signs like flank pain, suprapubic pain cough ,shortness of breath or chest pain.. Her WBC count is 22,000 and her hemoglobin is 8.7 today. Hemoglobin was 8.5 2 days ago. Because of her temperature elevation prior to evaluation emergency room and her elevated white count, we will admit her for IV antibiotics for suspected endometritis. Admission Exam (Per Admitting) Constitutional WD/WN, vitals as above Psychiatric A+Ox3, euthymic affect Genitourinary OB Exam Abdomen: + fundal height Discharge Data Consultations 07/16/23 10:34 ED Decision to Admit Stat Hospital Course (1) fever: Doing well, continues to be afebrile DC today on Augmentin x5 days f/u in office within one week Discharge Plan Discharge Items Patient Disposition: Home - Self-Care Reason For Visit: ENDOMETRITIS Discharge Diagnosis: UTI Condition on Discharge: Good Activity: Resume your previous activity Lifting: Gradually increase as tolerated Non-emergency contact: Primary Care Provider and Data Center Operator Call non-emergency contact if: you have any medication questions, your symptoms worsen, your pain is not controlled, your pain is worsening, your pain is unusual for you and your temperature is above 101 Follow-up/Referrals: PCP,NO [Primary Care Provider] - Diet: Regular Addtl Attending Provider Instructions: You were admitted to the hospital for fever and found to have a urinary tract infection. You were treated with antibiotics. A discharge summary will be sent to your primary care physician to ensure continuity of care. Please bring this discharge summary with you to your next office appointment so that your provider can review it at that time. Follow-up appointments: Make a follow-up appointment with your CONTENT DEVELOPMENT MANAGER within the next week. It is very important that you follow up with them shortly after discharge from the hospital. Keep all your follow-up appointments as already scheduled. If you cannot make an appointment, notify your provider. Medications: Your medication list has been reviewed and reconciled upon discharge to ensure accuracy and continuity of care. An updated list of all your medications is included with your hospital discharge paperwork. Please review this list closely, and make note of any changes. We sent a new medication called amoxicillin-clavulanate (Augmentin) to your pharmacy. Take amoxicillin-clavulanate (875mg) one tablet twice daily for 5 days. Take your medications as instructed; do not skip a dose of your medicines. Make sure all of your doctors know every medicine you are taking (including [id number] medicines, vitamins, and supplements). Call your primary care provider before taking any new medicines (including kgvv-oae-rqfmnag medicines, vitamins, and supplements), because some of these may interact with your current medications, or may make your symptoms worse. Tell your primary care provider if you cannot afford your medications. CONTACT YOUR PRIMARY CARE PROVIDER if you experience any of the following: Fever increased pain Difficulty following your treatment plan, or difficulty taking medications CALL 911 OR GO TO THE EMERGENCY DEPARTMENT if you experience any of the following: Sudden, severe abdominal pain or nausea/vomiting Severe chest pain, or chest pain that radiates (moves) to your jaw or arm Sudden, severe shortness of breath or difficulty breathing Thank you for allowing us to participate in your care. Pending Studies at Discharge: No Stand-Alone Forms: [facility], Smoking Cessation Medications and DC Order Prescriptions: New amoxicillin-pot clavulanate 875-125 mg tablet 1 tab PO BID Qty: 10 0RF Continued One-A-Day 400 mcg- 25 mg Tablet,Chewable 1 tab PO DAILY ferrous sulfate [Iron (ferrous sulfate)] 325 mg (65 mg iron) Tablet 325 mg PO DAILY Discharge Orders: Discharge Order (Routine); Ordered 07/18/23 Ordered By: Chaz Waters Admission Data Admit Date/Time: 07/16/23 12:46 Attending Provider: Cynthia Ott Admit Provider: Cynthia Ott Primary Care Provider: PCP,NO Other Providers: Cynthia Ott Other Interventions: Discharge Summary Assessment (RN) Last Done: 07/18/23 09:12 Coding Level of Care Code 57261 IN/OBS DISCH 30 MIN/LESS Diagnoses fever O86.4
== END 2023-07-18 10:42 | disposition home or self-care (01) | DRG 776 ==
LOC: ED 08:57 → 4E1 12:46
DX: O99.03 Anemia complicating the puerperium; D64.9 Anemia, unspecified; O86.20 Urinary tract infection following delivery, unspecified; Z79.899 Other long term (current) drug therapy